=== PATIENT | female | born 1980 | race Caucasian/White ===

== ENCOUNTER → 2016-11-06 | Outpatient (CLI) | payer BC | LOC: COL.RAD 09:31 | DX: O26.892 Other specified pregnancy related conditions, second trimester (principal); N13.39 Other hydronephrosis; R31.0 Gross hematuria; Z3A.22 22 weeks gestation of pregnancy ==

== ENCOUNTER 2017-03-10 09:54 | Inpatient (IN) | payer BC ==
[2017-03-10] VITALS (10 sets, daily range): BP systolic 125–143; BP diastolic 68–86; PULSE 72–109; TEMP 98–98.2
[~2017-03-10] VITALS: Ht 165.1 cm; Wt 83.2 kg
[2017-03-10 11:14] LABS: BASO % 0.2 % (0.0-2.0); EOS # 0.1 (0.0-0.7); EOS % 0.8 % (0-4.0); GRAN # 8.3 (1.4-6.5); GRAN % 82.6 % (42.2-75.2); HEMOGLOBIN 12.5 g/dl (12.5-16.0); LYMPH % 10.4 % (20.0-51.0); MEAN CELL VOLUME 90 fl (80.0-100.0); MEAN CORPUSCULAR HEMOGLOBIN 31 pg (27.0-31.0); MEAN CORPUSCULAR HGB CONC 34 g/dl (33.0-37.0); MEAN PLATELET VOLUME 10.9 fl (7.4-10.4); MONO # 0.6 (0.1-0.6); MONO % 5.6 % (1.7-9.3); PLATELET COUNT 160 K/mm3 (130-400); RED BLOOD COUNT 4.09 M/mm3 (4.10-5.30); REDCELL DISTRIBUTION WIDTH-CV 13.7 % (11.5-14.5)
[2017-03-10 11:37] LABS: HEMATOCRIT 36.8 % (37.0-47.0)
[2017-03-11 00:30] VITALS: BP 122/65; PULSE 73; TEMP 99.3
[2017-03-11 04:45] VITALS: BP 114/55; PULSE 70; TEMP 98.4
[2017-03-11 08:35] VITALS: BP 105/57; PULSE 65; TEMP 97.6
[2017-03-11 17:21] VITALS: BP 121/81; PULSE 68; TEMP 98
[2017-03-11 23:10] VITALS: BP 107/67; PULSE 65; TEMP 97.6
[2017-03-12 06:46] VITALS: BP 117/67; PULSE 71; TEMP 97.8
== END 2017-03-12 11:25 | disposition home or self-care (01) | DRG 775 ==
LOC: LDRO → OB 10:25 → LDR 10:25 → OB 15:50
PROVIDERS: Obstetrics & Gynecology
PROC: 10E0XZZ Delivery of Products of Conception, External Approach (ICD-10-PCS; principal; 2017-03-10)
DX: O48.0 Post-term pregnancy (principal); O69.1XX0 Labor and delivery complicated by cord around neck, with compression, not applicable or unspecified; O99.824 Streptococcus B carrier state complicating childbirth; Z3A.40 40 weeks gestation of pregnancy; Z37.0 Single live birth
CPT/HCPCS: J2540; J2590; J7120

== ENCOUNTER 2019-01-23 05:59 | Inpatient (IN) | payer BC ==
[~2019-01-23] VITALS: Ht 165.1 cm; Wt 84.1 kg
[2019-01-23] VITALS (10 sets, daily range): BP systolic 105–156; BP diastolic 58–91; PULSE 74–125; TEMP 97.7–98.6
--- NOTE | 2019-01-23 06:15 | NUR ---
Amniotest on admission positive.
--- NOTE | 2019-01-23 06:15 | NUR ---
Pt arrives on unit ambulatory with spouse. G5L3 at 40.3 weeks gestation. States LOF at 0000 with scant clear fluid. Ctx began at 0200 that increased with intensity and regularity. Reports bloody show and good movment. Changed into clean gown. EFM and toco applied. BP increased. IV stared in LW. Labs drawn. LR and Adam infusing. Admission assessment completed. Pt updated on POC. Oriented to room. No questions or concerns at this time.
[2019-01-23 07:08] LABS: BASO % 0.2 % (0.0-2.0); EOS # 0.1 (0.0-0.7); EOS % 0.8 % (0-4.0); GRAN # 10.5 (1.4-6.5); GRAN % 81.4 % (42.2-75.2); HEMOGLOBIN 12.1 g/dl (12.5-16.0); LYMPH # 1.4 (1.2-3.4); MEAN CELL VOLUME 91 fl (80.0-100.0); MEAN CORPUSCULAR HEMOGLOBIN 31 pg (27.0-31.0); MEAN CORPUSCULAR HGB CONC 33 g/dl (33.0-37.0); MEAN PLATELET VOLUME 11.1 fl (7.4-10.4); MONO # 0.8 (0.1-0.6); PLATELET COUNT 186 K/mm3 (130-400); RED BLOOD COUNT 3.96 M/mm3 (4.10-5.30); REDCELL DISTRIBUTION WIDTH-CV 12.7 % (11.5-14.5)
[2019-01-23 07:10] LABS: HEMATOCRIT 36.2 % (37.0-47.0)
--- NOTE | 2019-01-23 07:45 | NUR ---
Continues to be in the hot tub. Assumed care of patient. Breathes through contractions. Spouse at bedside. Denies any needs at this time. Vital signs done, heart tones done with doppler.
--- NOTE | 2019-01-23 08:15 | NUR ---
Stands at bedside. States does not want to go back into hot tub. Says getting mote intense. Spouse at bedside. Denies any needs at this time.
--- NOTE | 2019-01-23 08:30 | NUR ---
Continues to moan with contractions. [address] Leal called to room. Vag check done, states still cervix there. Continues to moan through contractions.
--- NOTE | 2019-01-23 09:00 | NUR ---
Rests in bed on knees and chest. Moans and hollers through some contractions. 924 Spontaneous rupture of fore bag. Large amount of clear fluid noted. Dr. Leal called to room. 928 Spontaneous delivery of baby girl by Dr. Leal in squating position. 936 Spontaneous delivery of placenta by Dr. Leal. Pitocin 333ccs an hour started as ordered and per policy.
--- NOTE | 2019-01-23 10:30 | NUR ---
Rests in bed, alert. Baby at this time.
--- NOTE | 2019-01-23 11:00 | NUR ---
Rests in bed, alert. Continues to breastfeed baby. Denies any needs at this time.
--- NOTE | 2019-01-23 11:30 | NUR ---
Rests in bed, alert. Spouse at bedside. Denies any needs at this time.
[2019-01-24 00:05] VITALS: BP 117/57; PULSE 74; TEMP 97.7
[2019-01-24 07:42] VITALS: BP 142/86; PULSE 91; TEMP 98
[2019-01-24 16:11] VITALS: BP 128/66; PULSE 73; TEMP 98.2
[2019-01-24 21:50] VITALS: BP 131/74; PULSE 67; TEMP 98
[2019-01-25 08:00] VITALS: BP 121/71; PULSE 65; TEMP 98.3
[2019-01-25] MEDS ORDERED: IBU600 MG PO (10:33)
[2019-01-25] MEDS ORDERED: PERCOCET 325 MG1 TA2 PO (10:34)
== END 2019-01-25 12:45 | disposition home or self-care (01) | DRG 807 ==
LOC: LDRO 05:59 → LDR 06:02 → LDRO 06:29 → LDR 06:30 → OB 13:00
PROVIDERS: Obstetrics & Gynecology; ADMIT Obstetrics & Gynecology
PROC: 10E0XZZ Delivery of Products of Conception, External Approach (ICD-10-PCS; principal; 2019-01-23)
DX: O42.92 Full-term premature rupture of membranes, unspecified as to length of time between rupture and onset of labor (principal); Z37.0 Single live birth; O69.1XX0 Labor and delivery complicated by cord around neck, with compression, not applicable or unspecified; Z3A.40 40 weeks gestation of pregnancy
CPT/HCPCS: J2540; J2590; J7120